=== PATIENT | male | born 1955 | race Caucasian/White ===

== ENCOUNTER 2017-01-20 10:55 | Emergency (ER) | payer SELFPAY ==
[2017-01-20 11:07] VITALS: BP 147/60
--- NOTE | 2017-01-20 11:10 | ER Document Report ---
ED Medical Screen (RME) - General Chief Complaint: Rectal Bleeding Stated Complaint: RECTAL BLEEDING Time Seen by Provider: 01/20/17 11:08 Mode of Arrival: Ambulatory Information source: Patient Notes: 61-year-old male presents to ED for rectal bleeding. He states a couple days ago he had a painful bowel movement then today 89 different times when he went to the bathroom he is noted bloodied on the paper and distal. He says it is a small amount of sometimes bright and sometimes dark red blood. Patient denies any history of hemorrhoids states she has never had a colonoscopy. He denies smoking drinking or drugs. He denies any past medical history except for essential tremors. Lungs are clear respirations eat regular and even. I have greeted and performed a rapid initial assessment of this patient. A comprehensive ED assessment and evaluation of the patient, analysis of test results and completion of medical decision making process will be conducted by an additional ED providers. TRAVEL OUTSIDE OF THE [place] IN LAST 30 DAYS: No - Related Data Allergies/Adverse Reactions: No Known Allergies Allergy (Unverified 01/20/17 11:04) Past Medical History Renal/ Medical History: Denies: Hx Peritoneal Dialysis Physical Exam - Vital signs Vitals: Temp Pulse Resp BP Pulse Ox 98.3 F 107 H 20 147/60 H 94 01/20/17 11:06 01/20/17 11:06 01/20/17 11:06 01/20/17 11:06 01/20/17 11:06 Course - Vital Signs Vital signs: Temp Pulse Resp BP Pulse Ox 98.3 F 107 H 20 147/60 H 94 01/20/17 11:06 01/20/17 11:06 01/20/17 11:06 01/20/17 11:06 01/20/17 11:06
[2017-01-20 11:44] LABS: APPEARANCE,URINE SLIGHTLY-CLOUDY; BILIRUBIN,URINE NEGATIVE (NEGATIVE); GLUCOSE, URINE NEGATIVE (NEGATIVE); KETONES,URINE NEGATIVE (NEGATIVE); LEUKOCYTE ESTERASE,URINE TRACE (NEGATIVE); NITRITE,URINE NEGATIVE (NEGATIVE); PROTEIN,URINE 30 mg/dL (NEGATIVE); URINE SPECIFIC GRAVITY 1.018; UROBILINOGEN,URINE NEGATIVE mg/dL (<2.0)
--- NOTE | 2017-01-20 11:51 | ER Document Report ---
ED General - General Chief Complaint: Rectal Bleeding Stated Complaint: RECTAL BLEEDING Time Seen by Provider: 01/20/17 11:08 Mode of Arrival: Ambulatory Information source: Patient Notes: 61-year-old male presents with complaints of rectal bleeding a few day duration. Patient notes that has been bright red with a few clots. He denies any abdominal pain, notes symptoms started over the past few days since he had large bowel movements. Admits to mild rectal pain denies a history of hemorrhoids patient has not had a colonoscopy TRAVEL OUTSIDE OF THE [place] IN LAST 30 DAYS: No - HPI Onset: Other - 3 Day duration Onset/Duration: Intermittent Quality of pain: Achy Severity: Mild Pain Level: 1 Associated symptoms: Other Exacerbated by: Denies Relieved by: Denies Similar symptoms previously: No Recently seen / treated by doctor: No - Related Data Allergies/Adverse Reactions: No Known Allergies Allergy (Unverified 01/20/17 11:04) Past Medical History - General Information source: Patient - Social History Smoking Status: Never Smoker Cigarette use (# per day): No Chew tobacco use (# tins/day): No Smoking Education Provided: No Family History: Reviewed & Not Pertinent Patient has suicidal ideation: No Patient has homicidal ideation: No Renal/ Medical History: Denies: Hx Peritoneal Dialysis Review of Systems - Review of Systems Notes: REVIEW OF SYSTEMS: CONSTITUTIONAL : Denies fever, chills, or sweats. Denies recent illness. EENT: Denies eye, ear, throat, or mouth pain or symptoms. Denies nasal or sinus congestion or discharge. Denies throat, tongue, or mouth swelling or difficulty swallowing. CARDIOVASCULAR: Denies chest pain. Denies palpitations or racing or irregular heart beat. Denies ankle edema. RESPIRATORY: Denies cough, cold, or chest congestion. Denies shortness of breath, difficulty breathing, or wheezing. GASTROINTESTINAL: Denies abdominal pain or distention. Denies nausea, vomiting , or diarrhea. Admits to rectal bleed GENITOURINARY: Denies difficulty urinating, painful urination, burning, frequency, blood in urine, or discharge. MUSCULOSKELETAL: Denies back or neck pain or stiffness. Denies joint pain or swelling. SKIN: Denies rash, lesions or sores. HEMATOLOGIC : Denies easy bruising or bleeding. LYMPHATIC: Denies swollen, enlarged glands. NEUROLOGICAL: Admits to essential tremors PSYCHIATRIC: Denies anxiety or stress. Denies depression, suicidal ideation, or homicidal ideation. ALL OTHER SYSTEMS REVIEWED AND NEGATIVE. Dictation was performed using [employer] voice recognition software PHYSICAL EXAMINATION: GENERAL: Well-appearing, well-nourished and in no acute distress. HEAD: Atraumatic, normocephalic. EYES: Pupils equal round and reactive to light, extraocular movements intact, sclera anicteric, conjunctiva are normal. ENT: Nares patent, oropharynx clear without exudates. Moist mucous membranes. NECK: Normal range of motion, supple without lymphadenopathy LUNGS: Breath sounds clear to auscultation bilaterally and equal. No wheezes rales or rhonchi. HEART: Regular rate and rhythm without murmurs ABDOMEN: Soft, nontender, nondistended abdomen. No guarding, no rebound. No masses appreciated. Rectal examination performed with nurse in room notes a thrombosed hemorrhoid with large clots Musculoskeletal: Normal range of motion, no pitting or edema. No cyanosis. NEUROLOGICAL: Cranial nerves grossly intact. Normal speech, normal gait. Normal sensory, motor exams PSYCH: Normal mood, normal affect. SKIN: Warm, Dry, normal turgor, no rashes or lesions noted. Physical Exam - Vital signs Vitals: Temp Pulse Resp BP Pulse Ox 98.3 F 107 H 20 147/60 H 94 01/20/17 11:06 01/20/17 11:06 01/20/17 11:06 01/20/17 11:06 01/20/17 11:06 Course - Re-evaluation Re-evalutation: 01/20/17 11:48 The large clots were removed, obvious hemorrhoid is noted on the right lateral aspect of the anus, patient otherwise is in no distress looks well has been given very strict return precautions regarding bleeding hemorrhoids After performing a Medical Screening Examination, I estimate there is LOW risk for ACUTE APPENDICITIS, BOWEL OBSTRUCTION, ACUTE CHOLECYSTITIS, PERFORATED DIVERTICULITIS, INCARCERATED HERNIA, PANCREATITIS, or PERFORATED ULCER, thus I consider the discharge disposition reasonable. Also, there is no evidence or peritonitis, sepsis, or toxicity. I have reevaluated this patient multiple times and no significant life threatening changes are noted. The patient and I have discussed the diagnosis and risks, and we agree with discharging home with close follow-up with the understanding that symptoms and presentations can change. We also discussed returning to the Emergency Department immediately if new or worsening symptoms occur. We have discussed the symptoms which are most concerning (e.g., bloody stool, fever, changing or worsening pain, intractable vomiting - standard verbal up date) that necessitate immediate return. - Vital Signs Vital signs: Temp Pulse Resp BP Pulse Ox 98.3 F 107 H 20 147/60 H 94 01/20/17 11:06 01/20/17 11:06 01/20/17 11:06 01/20/17 11:06 01/20/17 11:06 - Laboratory Laboratory results interpreted by me: 01/20/17 11:30 Urine Protein 30 H Urine Blood LARGE H Ur Leukocyte Esterase TRACE H Discharge - Discharge Clinical Impression: Thrombosed external hemorrhoid, Rectal bleeding Constipation Qualifiers: Constipation type: unspecified constipation type Qualified Code(s): K59.00 - Constipation, unspecified Condition: Stable Disposition: HOME, SELF-CARE Instructions: HC Hemorrhoid Cream ([facility]), Incision of Thrombosed Hemorrhoids ( [facility]), Hemorrhoids ([facility]) Prescriptions: Polyethylene Glycol 3350 [Miralax Powder 17 gm/Packet] 1 packet PO DAILY #7 pkg Referrals: NNAMDI FARLEY MD [ACTIVE STAFF] - Follow up tomorrow
== END 2017-01-20 11:55 | disposition home or self-care (01) ==
LOC: ER 10:55
DX: K62.5 Hemorrhage of anus and rectum (principal); K59.00 Constipation, unspecified; K62.89 Other specified diseases of anus and rectum; K64.5 Perianal venous thrombosis
CPT/HCPCS: 81001; 99283

== ENCOUNTER → 2017-07-12 | Outpatient (CLI) | payer MEDICARE ==
--- NOTE | 2017-07-12 12:24 | RADIOLOGY REPORT (SQ) ---
EXAM DESCRIPTION: CHEST PA/LATERAL COMPLETED DATE/TIME: 07/12/2017 12:17 pm REASON FOR STUDY: PRE OP COMPARISON: None. NUMBER OF VIEWS: Two view. TECHNIQUE: Frontal and lateral radiographic views of the chest acquired. LIMITATIONS: None. FINDINGS: LUNGS AND PLEURA: No opacities, masses or pneumothorax. No pleural effusion. MEDIASTINUM AND HILAR STRUCTURES: No masses or contour abnormalities. HEART AND VASCULATURE: Heart normal size. No evidence for failure. BONY STRUCTURES: No acute findings. HARDWARE: None. OTHER: No other significant finding. IMPRESSION: NO SIGNIFICANT RADIOGRAPHIC FINDING IN THE CHEST. TECHNICAL DOCUMENTATION: JOB ID: [id number] [employer]- All Rights Reserved
[2017-07-12 12:42] LABS: APPEARANCE,URINE CLEAR; BILIRUBIN,URINE NEGATIVE (NEGATIVE); COLOR,URINE YELLOW; GLUCOSE, URINE NEGATIVE (NEGATIVE); KETONES,URINE NEGATIVE (NEGATIVE); LEUKOCYTE ESTERASE,URINE NEGATIVE (NEGATIVE); NITRITE,URINE NEGATIVE (NEGATIVE); PROTEIN,URINE NEGATIVE (NEGATIVE); URINE SPECIFIC GRAVITY 1.013; UROBILINOGEN,URINE NEGATIVE mg/dL (<2.0)
[2017-07-12 12:48] LABS: ABSOLUTE EOSINOPHILS # (AUTO) 0.1 10^3/uL (0.0-0.6); ABSOLUTE LYMPHOCYTES (AUTO) 1.9 10^3/uL (0.5-4.7); ABSOLUTE MONOCYTES (AUTO) 0.7 10^3/uL (0.1-1.4); ABSOLUTE NEUT (AUTO) 5.3 10^3/uL (1.7-8.2); BASOPHILS % (AUTO) 0.3 % (0-2); EOSINOPHILS % (AUTO) 1.5 % (0-6); HEMOGLOBIN 15.6 g/dL (13.5-17.0); MEAN CORPUSCULAR HEMOGLOBIN 29.7 pg (27.0-33.4); MEAN CORPUSCULAR HGB CONC 33.8 g/dL (32.0-36.0); MEAN CORPUSCULAR VOLUME 88 fl (80-97); MONOCYTES % (AUTO) 8.3 % (3-13); PLATELET COUNT 215 10^3/uL (150-450); RED BLOOD COUNT 5.23 10^6/uL (4.35-5.55); RED CELL DISTRIBUTION WIDTH 13.4 % (11.5-14.0); SEGMENTED NEUTROPHILS % (AUTO) 65.9 % (42-78); TOTAL CELLS COUNTED % (AUTO) 100 %; WHITE BLOOD COUNT 8.1 10^3/uL (4.0-10.5)
[2017-07-12 13:07] LABS: ANION GAP 10 (5-19); BLOOD UREA NITROGEN 12 mg/dL (7-20); CALCIUM 10.1 mg/dL (8.4-10.2); CARBON DIOXIDE 31 mmol/L (22-30); CHLORIDE 103 mmol/L (98-107); GLUCOSE 80 mg/dL (75-110); POTASSIUM 4.8 mmol/L (3.6-5.0); SODIUM 143.7 mmol/L (137-145)
--- NOTE | 2017-07-13 10:26 | EKG REPORT ---
SEVERITY:- ABNORMAL ECG - PROBALE SINUS RHTHM, CANNOT ATRIAL FIBRILLATION, REC REPEAT EKG : Confirmed by: Harman Thacker 13-Jul-2017 10:25:37
== END ==
LOC: OD 11:24
PROVIDERS: ATTEND Orthopaedic Surgery
DX: Z01.810 Encounter for preprocedural cardiovascular examination (principal); Z01.812 Encounter for preprocedural laboratory examination; Z01.818 Encounter for other preprocedural examination
CPT/HCPCS: 36415; 71046; 80048; 81001; 85025; 93005; 93010

== ENCOUNTER 2017-08-08 05:30 | Inpatient (IN) | payer MEDICARE ==
[~2017-08-08 05:30] MED LIST: BUPIVACAINE INJ/PF LIPOSOME/PF 266 MG/20 ML SDV INJ PRN; BUPIVACAINE INJ/PF LIPOSOME/PF 266 MG/20 ML SDV ONE; CEFAZOLIN INJ 1 GM VIAL IV PRN; IBUPROFEN 800 MG in NORMAL SALINE 250 ML IV PRN; LACTATED RINGERS 1000 ML IV PRN; LANSOPRAZOLE 15 MG TAB.RAP.DR PO PRN; LIDOCAINE 0.5% INJ-PF (5 MG/ML) 50 ML SDV SUBCUT PRN; OXYCODONE HCL SR 10 MG TABLET PO PRN; THROMBIN (BOVINE) 5000 UNIT EPITAXIS KIT ONE; THROMBIN (BOVINE) TOPICAL 20000 UNIT VIAL ONE; VANCOMYCIN HCL 1,000 MG in DEXTROSE 5%-WATER 250 ML IV PRN
[2017-08-08] MEDS ORDERED: ONDANSETRON HCL INJ/PF 4 MG/2 ML SDV ONE (07:11)
[2017-08-08] MEDS ORDERED: FENTANYL CITRATE INJ/PF 100 MCG/2 ML AMPUL ONE (07:11)
[2017-08-08] MEDS ORDERED: PROPOFOL INJ 200 MG/20 ML VIAL IV ONE (07:11)
[2017-08-08] MEDS ORDERED: MIDAZOLAM 2 MG/2 ML INJ ONE (07:11)
[2017-08-08] MEDS ORDERED: TRANEXAMIC ACID INJ/PF 1,000 MG/10 ML SDV IV ONE ×2 (07:12→10:00)
[2017-08-08] MEDS ORDERED: ONDANSETRON HCL INJ/PF 4 MG/2 ML SDV IV PRN ×2 (07:40→08:41)
[2017-08-08] MEDS ORDERED: MORPHINE SULFATE 10 MG/ML INJ IV PRN ×4 (07:40→08:41)
[2017-08-08] MEDS ORDERED: FENTANYL CITRATE INJ/PF 100 MCG/2 ML AMPUL IV PRN ×3 (07:40)
[2017-08-08] MEDS ORDERED: DIPHENHYDRAMINE HCL 50 MG/ML VIAL IV PRN ×2 (07:40→08:41)
--- NOTE | 2017-08-08 08:27 | Operative Report ---
Operative Report DATE OF SURGERY: 08/08/17 PREOPERATIVE DIAGNOSIS: Right knee arthritis OPERATION: Right knee arthroplasty SURGEON: MARYANNE MCKEON 1ST BOBBIN MARKER: ARSENIO HIGGINS ANESTHESIA: Spinal TISSUE REMOVED OR ALTERED: Bone to pathology ESTIMATED BLOOD LOSS: 100 PROCEDURE: Implants used: Femur: [place] triathlon size 8 CR femur Tibia: 7 tibia Tibial liner: 11 mm CS insert Patella: 40 mm oval patella Procedure with the patient supine on the operating table the right the limb is prepped and draped in a sterile fashion. The limb was elevated for exsanguination and the tourniquet inflated to 280 torr. A standard midline median parapatellar approach the knee is taken. Access is gained to the femoral canal through the intercondylar notch. Intramedullary alignment instrumentation used to resect 10 mm of distal femur in 5 of valgus. Sizing guide indicated a size 8 femur. It is anticipated that there is going to be a slight notching of the anterior femoral cortex because this is the largest implant that is available. Next an appropriate cutting jig is then used to fashion anterior posterior and chamfer cuts. A trial reduction femurs performed and this is judged to be adequate. Attention was next turned to the tibia. Using an extra medullary alignment system 9 millimeters was resected off the lateral tibial plateau. This is sized to a size 7 tibia. A trial reduction was now performed with a 8 femur and a 7 tibia using a 11 millimeters spacer. It is full extension and central patellofemoral tracking. The articular surface the patella was next resected using an oscillating saw. All trial implants were removed. Polymethylmethacrylate is mixed and used to cement the above implants in place. On adequate curing the cement excess cement was removed the tourniquet was deflated hemostasis obtained the wound is then closed in layers using interrupted Vicryl followed by allyssa. A sterile compressive dressing was applied and the patient returned to recovery room in satisfactory condition.
[2017-08-08] MEDS ORDERED: MORPHINE SULFATE 10 MG/ML INJ IM PRN (08:41)
[2017-08-08] MEDS ORDERED: ZOLPIDEM TARTRATE 5 MG TABLET PO PRN (08:41)
[2017-08-08] MEDS ORDERED: OXYCODONE HCL IR 5 MG TABLET PO PRN (08:41)
[2017-08-08] MEDS ORDERED: ACETAMINOPHEN 325 MG TABLET PO PRN (08:41)
[2017-08-08] MEDS ORDERED: ONDANSETRON 4 MG TAB.RAPDIS PO PRN (08:41)
[2017-08-08] MEDS ORDERED: MAG HYDROX/AL HYDROX/SIMETH SUSP 30 ML UDCUP PO PRN (08:41)
--- NOTE | 2017-08-08 08:52 | Physician Advisory Note ---
Physician Advisor ProgressNote .: Pursuant to the plan for Tonia Aguilar, I have reviewed the medical record for this patient. Physician Advisor Statement: Please consider documenting, if you agree: 1. "Endstage OA by x-ray; x-ray findings include " (severe joint space narrowing? subchondral cysts? subchondral sclerosis? periarticular osteophytes? joint subluxzation? ...) 2. "ADLs interfered with by pain or disability due to OA include " (standing? walking? bathing? climbing stairs? squatting? cooking? difficulty getting up from seated position? disrupted sleep due to inability to lie on hip in bed?, ...) 3. Status necessity for Medicare: "I strongly expect this patient to require at least 2 midnights of inpatient hospital care because " - OR: start with patient in Outpt Obs status, changing to Inpatient status the next day if patient has medical issue requiring continued hospitalization. Status: Pt with OA, tremor, obesity with BMI between 30 & 40. This gives ASA classification II. No signficant co-morbidities. He has family, who may be available/able to assist post-op. Per CMS instruction, this sort of case should now start in Outpatient status. Thanks! CK
--- NOTE | 2017-08-08 09:26 | RADIOLOGY REPORT (SQ) ---
EXAM DESCRIPTION: KNEE RIGHT 2 VIEWS COMPLETED DATE/TIME: 08/08/2017 9:18 am REASON FOR STUDY: Post OP -Long Cassette in PACU M17.11 UNILATERAL PRIMARY OSTEOARTHRITIS, RIGHT KN EE COMPARISON: None. NUMBER OF VIEWS: Two view(s). TECHNIQUE: Digital radiographic images of the right knee post-procedure. LIMITATIONS: None. FINDINGS: BONES: No worrisome or unexpected findings post-procedure. DEVICE: Total knee arthroplasty SOFT TISSUES: No worrisome findings. Expected postoperative soft tissue changes. IMPRESSION: SATISFACTORY POSTOPERATIVE RIGHT KNEE. TECHNICAL DOCUMENTATION: JOB ID: [id number] [employer]- All Rights Reserved
[2017-08-08] MEDS ORDERED: INFLUENZA ADLT QUAD (36MOS+) 2017-18 VAC 0.5 ML SYR IM PRN (10:19)
[2017-08-08] MEDS: OXYCODONE HCL SR 10 MG TABLET PO SCH ×2 (11:13→21:25)
[2017-08-08] MEDS: PREGABALIN 75 MG CAPSULE PO SCH ×2 (11:13→18:14)
[2017-08-08] MEDS ORDERED: ACETAMINOPHEN 100 ML IV ONE (14:41)
[2017-08-08] MEDS: IBUPROFEN 800 MG in NORMAL SALINE 250 ML IV SCH ×2 (15:14→21:26)
[2017-08-08] MEDS ORDERED: VANCOMYCIN HCL 1,000 MG in DEXTROSE 5%-WATER 250 ML IV ONE (20:41)
[2017-08-09] MEDS: IBUPROFEN 800 MG in NORMAL SALINE 250 ML IV SCH ×3 (05:02→21:15)
[2017-08-09] MEDS: LANSOPRAZOLE 30 MG TAB.RAP.DR PO SCH (05:02)
[2017-08-09 05:42] LABS: HEMATOCRIT 37.9 % (37.9-51.0); HEMOGLOBIN 12.7 g/dL (13.5-17.0); MEAN CORPUSCULAR HEMOGLOBIN 29.9 pg (27.0-33.4); MEAN CORPUSCULAR HGB CONC 33.6 g/dL (32.0-36.0); MEAN CORPUSCULAR VOLUME 89 fl (80-97); PLATELET COUNT 178 10^3/uL (150-450); RED BLOOD COUNT 4.25 10^6/uL (4.35-5.55); RED CELL DISTRIBUTION WIDTH 12.9 % (11.5-14.0); WHITE BLOOD COUNT 9.9 10^3/uL (4.0-10.5)
[2017-08-09 06:07] LABS: ANION GAP 11 (5-19); BLOOD UREA NITROGEN 15 mg/dL (7-20); CALCIUM 9.3 mg/dL (8.4-10.2); CARBON DIOXIDE 28 mmol/L (22-30); CHLORIDE 99 mmol/L (98-107); GLUCOSE 131 mg/dL (75-110); POTASSIUM 4.5 mmol/L (3.6-5.0); SODIUM 137.6 mmol/L (137-145)
--- NOTE | 2017-08-09 06:38 | PDOC PROGRESS REPORT ---
Subjective Progress Note for:: 08/09/17 Subjective:: 62-year-old white male 1 day status post total left knee arthroplasty. Patient lying recumbent in hospital bed and notes that he was comfortable overnight and felt nauseous from pain medication. Patient was reassured that medications will be adjusted to decrease nausea. Reason For Visit: M17.11 UNILATERAL PRIMARY OSTEOARTHRITIS, RIGHT KN Physical Exam Vital Signs: Temp Pulse Resp BP Pulse Ox 36.6 C 75 18 133/76 H 90 L 08/08/17 23:22 08/08/17 23:22 08/08/17 23:22 08/08/17 23:22 08/08/17 23:22 Intake & Output 08/07/17 08/08/17 08/09/17 06:59 06:59 06:59 Intake Total 0 3950 Output Total 2650 Balance 0 1300 General appearance: PRESENT: no acute distress, well-developed, well-nourished Head exam: PRESENT: atraumatic, normocephalic Respiratory exam: PRESENT: unlabored Pulses: PRESENT: normal dorsalis pedis pul, +2 pedal pulses bilateral Vascular exam: PRESENT: normal capillary refill Additional comments: Patient lying recumbent in hospital bed with bilateral lower extremities in full extension. His postop compression dressing is in place and is clean dry and intact. This is left in place. He has minimal pedal edema and brisk capillary refill to toes on bilateral lower extremities. He has a pre-existing tremor of bilateral upper extremities which is apparent this morning. His legs are equal and his distal neurovascular exam is intact. Musculoskeletal exam: PRESENT: ambulatory Additional comments: Patient make slow progress with physical therapy ambulating 20 feet independently. At this point I believe he has not functionally capable to be discharged from the hospital. Therefore he will remain in the hospital for another midnight and continue to work with physical therapy to improve strength range of motion of left lower extremity. Neurological exam: PRESENT: alert, awake, oriented to person, oriented to place , oriented to time, oriented to situation, CN II-XII grossly intact. ABSENT: motor sensory deficit Psychiatric exam: PRESENT: appropriate affect, normal mood. ABSENT: homicidal ideation, suicidal ideation Skin exam: PRESENT: dry, intact, warm. ABSENT: cyanosis, rash Results Laboratory Results: 08/09/17 05:19 08/09/17 05:19 08/09/17 08/09/17 05:19 05:19 WBC 9.9 RBC 4.25 L Hgb 12.7 L Hct 37.9 MCV 89 MCH 29.9 MCHC 33.6 RDW 12.9 Plt Count 178 Sodium 137.6 Potassium 4.5 Chloride 99 Carbon Dioxide 28 Anion Gap 11 BUN 15 Creatinine 0.98 Est GFR ( Amer) > 60 Est GFR (Non-Af Amer) > 60 Glucose 131 H Calcium 9.3 Impressions: Knee X-Ray 08/08/17 08:42 IMPRESSION: SATISFACTORY POSTOPERATIVE RIGHT KNEE. Assessment & Plan - Diagnosis (1) Arthritis of left knee Is this a current diagnosis for this admission?: Yes (2) Acute blood loss anemia Is this a current diagnosis for this admission?: Yes Plan: Hemoglobin and hematocrit levels steadily rising from postop day 0. These should continue to rise and levels will normalize throughout his postop course. If they do not patient will likely benefit from transfusion of 1-2 units of packed red blood cells. - Plan Summary Plan Summary: 62-year-old white male 1 day status post total left knee arthroplasty. Patient make slow progress with physical therapy only ambulating 20 feet independently. Based on this assessment I do not believe he is functionally capable of being discharged from hospital. Therefore he will remain in the hospital for at least another midnight to continue to work with physical therapy to improve strength range of motion of left lower extremity. As the analgesic regimen was making patient nauseous his OxyContin will be discontinued. We will plan for discharge later this week.
[2017-08-09] MEDS: PREGABALIN 75 MG CAPSULE PO SCH ×2 (09:03→17:05)
[2017-08-09] MEDS: ASPIRIN 81 MG TABLET, ENT COATED PO SCH (09:03)
--- NOTE | 2017-08-09 09:57 | Physician Advisory Note ---
Physician Advisor ProgressNote .: Pursuant to the plan [facility], I have reviewed the medical record for this patient. Physician Advisor Statement: Please consider documenting, if you agree: 1. Details of pre-op x-rays & which ADLs interfered with by pain/disability from OA, as requested yesterday. 2. "Possible Anemia of Acute Blood Loss, due to " (Need to state likely cause.) VS. "Anemia of Acute Blood Loss, considered but ruled out" - Stating concern for possible Acute Blood Loss Anemia is helpful r.e. establishing medical necessity for continued hospitalization, & it can then be ruled in or out depending on pt's course. - If H/H is expected to normalize in a day or 2 without transfusion, then this is not likely anemia of acute blood loss, but may be hemodilution from operative IVF instead. Status: Medicare pt, has medical need for 2nd MN in hospital. Now appropriate for Inpatient status. Thanks! CK
[2017-08-10] MEDS: IBUPROFEN 800 MG in NORMAL SALINE 250 ML IV SCH (05:27)
[2017-08-10] MEDS: LANSOPRAZOLE 30 MG TAB.RAP.DR PO SCH (05:27)
[2017-08-10 06:34] LABS: HEMATOCRIT 35.8 % (37.9-51.0); HEMOGLOBIN 12.1 g/dL (13.5-17.0); MEAN CORPUSCULAR HEMOGLOBIN 29.8 pg (27.0-33.4); MEAN CORPUSCULAR HGB CONC 33.8 g/dL (32.0-36.0); MEAN CORPUSCULAR VOLUME 88 fl (80-97); PLATELET COUNT 171 10^3/uL (150-450); RED BLOOD COUNT 4.05 10^6/uL (4.35-5.55); RED CELL DISTRIBUTION WIDTH 13.2 % (11.5-14.0); WHITE BLOOD COUNT 9.9 10^3/uL (4.0-10.5)
--- NOTE | 2017-08-10 07:08 | PDOC DISCHARGE SUMMARY ---
General - Admit/Disc Date/PCP Admission Date/Primary Care Provider: 08/08/17 05:30 SYDNEY VALDEZ, Discharge Date: 08/10/17 - Discharge Diagnosis (1) Arthritis of left knee Is this a current diagnosis for this admission?: Yes (2) Acute blood loss anemia Is this a current diagnosis for this admission?: Yes - Additional Information Resuscitation Status: Full Code Discharge Activity: No Driving, No tub bath, Walk Frequently Home Medications: No Home Medications 08/08/17 History of Present Illness History of Present Illness: DAVIS SUTTON SR is a 62 year old male with progressive decrease in functional mobility due to arthritis of left knee admitted to the hospital to undergo elective total left knee arthroplasty. Hospital Course Hospital Course: 62-year-old white male with left knee arthritis admitted through the OR for elective total left knee arthroplasty. Patient undergoes an uncomplicated procedure and is returned to PACU in satisfactory condition. He is taking up to the surgical floor where he is seen by physical therapy to work towards independent ambulation and wear pain is managed by nursing staff and Dr. Borja and [place] MEDEROS. Patient makes great progress with physical therapy ambulating up to 100 feet independently. He will be discharged to home today with home health nursing, wheeled walker, bedside commode and home physical therapy. He will continue to work with home physical therapy to further distance of ambulation and improve strength range of motion of left lower extremity. Physical Exam Vital Signs: Temp Pulse Resp BP Pulse Ox 36.4 C 94 20 138/84 H 95 08/10/17 00:00 08/10/17 00:00 08/10/17 00:00 08/10/17 00:00 08/10/17 00:00 Intake & Output 08/09/17 08/10/17 08/11/17 06:59 06:59 06:59 Intake Total 4370 1515 Output Total 3100 800 Balance 1270 715 General appearance: PRESENT: no acute distress, well-developed, well-nourished Head exam: PRESENT: atraumatic, normocephalic Respiratory exam: PRESENT: unlabored Pulses: PRESENT: normal dorsalis pedis pul, +2 pedal pulses bilateral Additional comments: Patient reports polyuria throughout the night. Additional comments: Patient sitting upright with legs over the side of hospital bed. His compression dressing is clean dry and intact this is removed. His OpSite dressing underneath is clean dry and intact and this is left in place. There is minimal pedal edema and he has brisk capillary refill to toes on bilateral lower extremities. His leg lengths are equal and his distal neurovascular exam is intact. Patient's pre-existing bilateral upper extremity tremors are noted this morning. Musculoskeletal exam: PRESENT: ambulatory Additional comments: Patient makes great progress with physical therapy ambulating up to 100 feet independently. He will continue to work with home physical therapy once discharged to improve distance of ambulation and strength range of motion of left lower extremity. Neurological exam: PRESENT: alert, awake, oriented to person, oriented to place , oriented to time, oriented to situation, CN II-XII grossly intact. ABSENT: motor sensory deficit Psychiatric exam: PRESENT: appropriate affect, normal mood. ABSENT: homicidal ideation, suicidal ideation Skin exam: PRESENT: dry, intact, warm. ABSENT: cyanosis, rash Results Laboratory Results: 08/10/17 06:02 08/09/17 05:19 08/10/17 06:02 WBC 9.9 RBC 4.05 L Hgb 12.1 L Hct 35.8 L MCV 88 MCH 29.8 MCHC 33.8 RDW 13.2 Plt Count 171 Impressions: Knee X-Ray 08/08/17 08:42 IMPRESSION: SATISFACTORY POSTOPERATIVE RIGHT KNEE. Plan Discharge Plan: 62-year-old white male 2 days status post total left knee arthroplasty. Patient 's postoperative compression dressing is removed and the OpSite dressing under is clean dry and intact. This is left in place. He has made great progress with physical therapy ambulating 100 feet independently. He will continue to work with home physical therapy to improve strength range of motion of left lower extremity. He will be discharged home today with home health nursing, home [employer] therapy, wheeled walker, bedside commode. He will follow-up with [facility] for surgery 2 weeks postoperatively for reevaluation and staple removal. Before discharge a urinalysis will be ordered to assess for possible etiology of polyuria as urinary tract infection. Time Spent: Less than 30 Minutes
[2017-08-10 07:54] LABS: APPEARANCE,URINE CLEAR; BILIRUBIN,URINE NEGATIVE (NEGATIVE); COLOR,URINE YELLOW; GLUCOSE, URINE NEGATIVE (NEGATIVE); KETONES,URINE TRACE mg/dL (NEGATIVE); LEUKOCYTE ESTERASE,URINE NEGATIVE (NEGATIVE); NITRITE,URINE NEGATIVE (NEGATIVE); PROTEIN,URINE NEGATIVE (NEGATIVE); URINE SPECIFIC GRAVITY 1.009; UROBILINOGEN,URINE NEGATIVE mg/dL (<2.0)
[2017-08-10 08:35] VITALS: BP 138/84
[2017-08-10] MEDS: ASPIRIN 81 MG TABLET, ENT COATED PO SCH (09:16)
[2017-08-10] MEDS: PREGABALIN 75 MG CAPSULE PO SCH (09:17)
== END 2017-08-10 10:14 | disposition home health service (06) | DRG 470 ==
LOC: INOR 05:30 → EDSTATUS 07:30 → 4S 09:54
PROVIDERS: ADMIT Orthopaedic Surgery; ATTEND Orthopaedic Surgery
PROC: 0SRC0J9 Replacement of Right Knee Joint with Synthetic Substitute, Cemented, Open Approach (ICD-10-PCS; principal; 2017-08-08 07:30)
DX: M17.11 Unilateral primary osteoarthritis, right knee (principal); D62 Acute posthemorrhagic anemia; Z82.49 Family history of ischemic heart disease and other diseases of the circulatory system
CPT/HCPCS: 01402; 36415; 80048; 81001; 85027; 88305; 88311; 90686; 94799; C9290; G8978-GP; G8979-GP; G8987-GO; G8988-GO; J0131; J0690; J1741; J2250; J2270; J2405; J2704; J3010; J3370; J3490; J7050; J7060; S0119

== ENCOUNTER → 2018-01-16 | Outpatient (CLI) | payer MEDICARE ==
--- NOTE | 2018-01-16 08:52 | RADIOLOGY REPORT (SQ) ---
EXAM DESCRIPTION: CHEST PA/LATERAL COMPLETED DATE/TIME: 01/16/2018 8:42 am REASON FOR STUDY: PRE-OP COMPARISON: 07/12/2017 EXAM PARAMETERS: NUMBER OF VIEWS: two views TECHNIQUE: Digital Frontal and Lateral radiographic views of the chest acquired. RADIATION DOSE: NA LIMITATIONS: none FINDINGS: LUNGS AND PLEURA: No opacities, masses or pneumothorax. No pleural effusion. MEDIASTINUM AND HILAR STRUCTURES: No masses or contour abnormalities. HEART AND VASCULAR STRUCTURES: Heart normal size. No evidence for failure. BONES: No acute findings. HARDWARE: None in the chest. OTHER: No other significant finding. IMPRESSION: 1 No significant interval changes since the prior examination dated 07/12/2017. No acute findings. TECHNICAL DOCUMENTATION: JOB ID: [id number] [employer]- All Rights Reserved Reading location - IP/workstation name: [email or web address]
[2018-01-16 08:53] LABS: ABSOLUTE EOSINOPHILS # (AUTO) 0.1 10^3/uL (0.0-0.6); ABSOLUTE LYMPHOCYTES (AUTO) 1.9 10^3/uL (0.5-4.7); ABSOLUTE MONOCYTES (AUTO) 0.6 10^3/uL (0.1-1.4); ABSOLUTE NEUT (AUTO) 4.8 10^3/uL (1.7-8.2); BASOPHILS % (AUTO) 0.4 % (0-2); EOSINOPHILS % (AUTO) 0.9 % (0-6); HEMOGLOBIN 16.1 g/dL (13.5-17.0); LYMPHOCYTES % (AUTO) 25.5 % (13-45); MEAN CORPUSCULAR HEMOGLOBIN 30.1 pg (27.0-33.4); MEAN CORPUSCULAR VOLUME 86 fl (80-97); MONOCYTES % (AUTO) 7.9 % (3-13); PLATELET COUNT 237 10^3/uL (150-450); RED BLOOD COUNT 5.35 10^6/uL (4.35-5.55); RED CELL DISTRIBUTION WIDTH 13.6 % (11.5-14.0); SEGMENTED NEUTROPHILS % (AUTO) 65.3 % (42-78); TOTAL CELLS COUNTED % (AUTO) 100 %; WHITE BLOOD COUNT 7.4 10^3/uL (4.0-10.5)
[2018-01-16 08:54] LABS: APPEARANCE,URINE CLEAR; BILIRUBIN,URINE NEGATIVE (NEGATIVE); COLOR,URINE YELLOW; GLUCOSE, URINE NEGATIVE (NEGATIVE); KETONES,URINE NEGATIVE (NEGATIVE); LEUKOCYTE ESTERASE,URINE NEGATIVE (NEGATIVE); NITRITE,URINE NEGATIVE (NEGATIVE); PROTEIN,URINE NEGATIVE (NEGATIVE); URINE SPECIFIC GRAVITY 1.013; UROBILINOGEN,URINE NEGATIVE mg/dL (<2.0)
--- NOTE | 2018-01-16 09:13 | EKG REPORT ---
SEVERITY:- ABNORMAL ECG - SINUS RHYTHM WITH BASELINE ARTIFACT.PROBABLY NORMAL EKG : Confirmed by: Tressa Savage MD 16-Jan-2018 09:13:10
[2018-01-16 09:21] LABS: ANION GAP 12 (5-19); BLOOD UREA NITROGEN 10 mg/dL (7-20); CARBON DIOXIDE 30 mmol/L (22-30); CHLORIDE 104 mmol/L (98-107); GLUCOSE 103 mg/dL (75-110); POTASSIUM 4.9 mmol/L (3.6-5.0); SODIUM 146.1 mmol/L (137-145)
== END ==
LOC: OD 07:58
PROVIDERS: ATTEND Orthopaedic Surgery
DX: Z01.810 Encounter for preprocedural cardiovascular examination (principal); Z01.812 Encounter for preprocedural laboratory examination; Z01.818 Encounter for other preprocedural examination
CPT/HCPCS: 36415; 71046; 80048; 81001; 85025; 93005; 93010

== ENCOUNTER 2018-02-13 10:00 | Inpatient (IN) | payer MEDICARE ==
[2018-02-13] MEDS ORDERED: ONDANSETRON HCL INJ/PF 4 MG/2 ML SDV ONE (11:59)
[2018-02-13] MEDS ORDERED: MIDAZOLAM 2 MG/2 ML INJ ONE (11:59)
[2018-02-13] MEDS ORDERED: PROPOFOL INJ 200 MG/20 ML VIAL IV ONE (11:59)
[2018-02-13] MEDS ORDERED: FENTANYL CITRATE INJ/PF 100 MCG/2 ML AMPUL ONE ×2 (11:59→13:15)
[2018-02-13] MEDS ORDERED: TRANEXAMIC ACID INJ/PF 1,000 MG/10 ML SDV IV ONE ×3 (12:00→16:00)
[2018-02-13] MEDS ORDERED: BUPIVACAINE HCL/DEX-WATER/PF 15 MG/2 ML AMPULE ONE (12:00)
[2018-02-13] MEDS ORDERED: HYDROMORPHONE HCL INJ/PF 2 MG/ML AMPULE ONE (13:15)
[2018-02-13] MEDS ORDERED: DIPHENHYDRAMINE HCL 50 MG/ML VIAL IV PRN ×2 (13:42→14:01)
[2018-02-13] MEDS ORDERED: MEPERIDINE HCL/PF INJ 25 MG/1 ML DISP.SYRIN IV PRN (13:42)
[2018-02-13] MEDS ORDERED: FENTANYL CITRATE INJ/PF 100 MCG/2 ML AMPUL IV PRN ×3 (13:42)
[2018-02-13] MEDS ORDERED: OXYCODONE-ACETAMINOPHEN 5-325 MG TABLET PO PRN ×2 (13:42)
[2018-02-13] MEDS ORDERED: MORPHINE SULFATE 10 MG/ML INJ IV PRN ×3 (13:42→14:01)
[2018-02-13] MEDS ORDERED: PROMETHAZINE HCL INJ 25 MG/1 ML VIAL IV PRN ×2 (13:42)
[2018-02-13] MEDS ORDERED: ONDANSETRON 4 MG TAB.RAPDIS PO PRN (14:01)
[2018-02-13] MEDS ORDERED: ZOLPIDEM TARTRATE 5 MG TABLET PO PRN (14:01)
[2018-02-13] MEDS ORDERED: ACETAMINOPHEN 325 MG TABLET PO PRN (14:01)
[2018-02-13] MEDS ORDERED: RINGERS SOLUTION,LACTATED 1,000 ML IV PRN (14:01)
[2018-02-13] MEDS ORDERED: OXYCODONE HCL IR 5 MG TABLET PO PRN (14:01)
[2018-02-13] MEDS ORDERED: MAG HYDROX/AL HYDROX/SIMETH SUSP 30 ML UDCUP PO PRN (14:01)
[2018-02-13] MEDS ORDERED: MORPHINE SULFATE 10 MG/ML INJ IM PRN (14:01)
--- NOTE | 2018-02-13 14:01 | Operative Report ---
Operative Report DATE OF SURGERY: 02/13/18 PREOPERATIVE DIAGNOSIS: Left knee arthritis OPERATION: Left knee arthroplasty SURGEON: MARYANNE MCKEON ANESTHESIA: GA TISSUE REMOVED OR ALTERED: Bone to pathology ESTIMATED BLOOD LOSS: 150 PROCEDURE: Implants used: Femur: [place] triathlon size 8 CR femur Tibia: 8tibia Tibial liner: 9 mm CS insert Patella: 40 mm oval patella Procedure with the patient supine on the operating table the left the limb is prepped and draped in a sterile fashion. The limb was elevated for exsanguination and the tourniquet inflated to 280 torr. A standard midline median parapatellar approach the knee is taken. At this point it is clear that the spinal anesthetic was not satisfactory and the case is interrupted while anesthesia intubates the patient. During the course of the intubation the patient's blood pressure exceeds that of the tourniquet and there is considerable bleeding. Tourniquet is deflated. Once anesthesia stabilizes the blood pressure, the limb is again elevated for exsanguination tourniquet reinflated to 280 torr. Access is gained to the femoral canal through the intercondylar notch. Intramedullary alignment instrumentation used to resect 10 mm of distal femur in 5 of valgus. Sizing guide indicated a size 8 femur. Appropriate cutting jig is then used to fashion anterior posterior and chamfer cuts. A trial reduction femurs performed and this is judged to be adequate. Attention was next turned to the tibia. Using an extra medullary alignment system 9 millimeters was resected off the lateral tibial plateau. This is sized to a size 8 tibia. A trial reduction was now performed with a 8 femur and a 8 tibia using a 9 millimeters spacer. It is full extension and central patellofemoral tracking. The articular surface the patella was next resected using an oscillating saw. All trial implants were removed. Polymethylmethacrylate is mixed and used to cement the above implants in place. On adequate curing the cement excess cement was removed the tourniquet was deflated hemostasis obtained the wound is then closed in layers using interrupted Vicryl followed by allyssa. A sterile compressive dressing was applied and the patient returned to recovery room in satisfactory condition.
--- NOTE | 2018-02-13 15:45 | RADIOLOGY REPORT (SQ) ---
EXAM DESCRIPTION: KNEE LEFT 2 VIEWS COMPLETED DATE/TIME: 02/13/2018 3:12 pm REASON FOR STUDY: Post OP -Long Cassette in PACU M17.12 UNILATERAL PRIMARY OSTEOARTHRITIS, LEFT KNE E COMPARISON: None. NUMBER OF VIEWS: Two view(s). TECHNIQUE: Digital radiographic images of the left knee post-procedure. LIMITATIONS: None. FINDINGS: BONES: No worrisome or unexpected findings post-procedure. DEVICE: Total left knee arthroplasty. Position and alignment are anatomic. SOFT TISSUES: No worrisome findings. Expected postoperative soft tissue changes. IMPRESSION: SATISFACTORY POSTOPERATIVE LEFT KNEE. TECHNICAL DOCUMENTATION: JOB ID: [id number] [employer]- All Rights Reserved Reading location - IP/workstation name: [email or web address]
[2018-02-13] MEDS: ONDANSETRON HCL INJ/PF 4 MG/2 ML SDV IV PRN (17:37)
[2018-02-13] MEDS: SENNOSIDES/DOCUSATE 8.6-50 MG 1 EACH TABLET PO SCH (17:41)
[2018-02-13] MEDS: IBUPROFEN 800 MG in NORMAL SALINE 250 ML IV SCH (17:52)
[2018-02-13] MEDS ORDERED: DEXAMETHASONE SOD PHOSPHATE INJ 4 MG/1 ML VIAL ONE (20:06)
[2018-02-13] MEDS ORDERED: SUCCINYLCHOLINE CHLORIDE INJ 200 MG/10 ML VIAL ONE (20:06)
[2018-02-13] MEDS: OXYCODONE HCL SR 10 MG TABLET PO SCH (21:51)
[2018-02-14] MEDS ORDERED: LABETALOL HCL INJ 20 MG/4 ML DISP.SYRIN IV PRN (00:13)
[2018-02-14] MEDS ORDERED: LABETALOL HCL INJ 200 MG/40 ML VIAL IV ONE (00:44)
[2018-02-14] MEDS: ONDANSETRON HCL INJ/PF 4 MG/2 ML SDV IV PRN ×3 (00:46→15:46)
[2018-02-14] MEDS: MORPHINE SULFATE 10 MG/ML INJ IV PRN ×3 (00:46→20:31)
[2018-02-14] MEDS: IBUPROFEN 800 MG in NORMAL SALINE 250 ML IV SCH (01:24)
[2018-02-14] MEDS ORDERED: VANCOMYCIN HCL 1,000 MG in DEXTROSE 5%-WATER 250 ML IV ONE (02:03)
[2018-02-14] MEDS: LANSOPRAZOLE 30 MG TAB.RAP.DR PO SCH (05:08)
--- NOTE | 2018-02-14 06:53 | PDOC PROGRESS REPORT ---
Subjective Progress Note for:: 02/14/18 Reason For Visit: M17.12 UNILATERAL PRIMARY OSTEOARTHRITIS, LEFT KNE 62-year-old white male postop day 1 from left knee arthroplasty. Patient has not been seen by physical therapy and has not been out of bed postoperatively. Physical Exam Vital Signs: Temp Pulse Resp BP Pulse Ox 36.4 C 84 18 134/78 H 95 02/13/18 20:31 02/14/18 03:00 02/13/18 20:31 02/14/18 03:00 02/13/18 20:31 Intake & Output 02/12/18 02/13/18 02/14/18 06:59 06:59 06:59 Intake Total 3850 Output Total 2275 Balance 1575 General appearance: PRESENT: no acute distress, mild distress Head exam: PRESENT: normocephalic Respiratory exam: PRESENT: unlabored Cardiovascular exam: PRESENT: RRR Pulses: PRESENT: +1 pedal pulses bilateral Vascular exam: PRESENT: normal capillary refill GI/Abdominal exam: PRESENT: soft Rectal exam: PRESENT: deferred Extremities exam: PRESENT: other - Left lower extremity dressing clean dry and intact. Distal neurovascular examination is intact. Neurological exam: PRESENT: alert, awake, oriented to person, oriented to place , oriented to time, oriented to situation. ABSENT: motor sensory deficit Psychiatric exam: PRESENT: appropriate affect, normal mood. ABSENT: homicidal ideation, suicidal ideation Skin exam: PRESENT: dry, intact, warm. ABSENT: cyanosis, rash Results Impressions: Knee X-Ray 02/13/18 14:04 IMPRESSION: SATISFACTORY POSTOPERATIVE LEFT KNEE. Status: Imported from PACS Assessment & Plan - Diagnosis (1) Arthritis of left knee Is this a current diagnosis for this admission?: Yes Plan: 62-year-old white male status post left knee arthroplasty postop day 1. Patient with significant tremor disorder. He has not been out of bed at this point. He will be seen by physical therapy today for weightbearing as tolerated ambulation. At this point is not suitable for consideration of discharge home because of his limited functional status. - Time Time Spent with patient: 15-24 minutes Anticipated discharge: Home with Homehealth Within: within 24 hours
[2018-02-14 07:14] LABS: HEMATOCRIT 37.4 % (37.9-51.0); HEMOGLOBIN 12.5 g/dL (13.5-17.0); MEAN CORPUSCULAR HEMOGLOBIN 29.6 pg (27.0-33.4); MEAN CORPUSCULAR HGB CONC 33.5 g/dL (32.0-36.0); MEAN CORPUSCULAR VOLUME 88 fl (80-97); PLATELET COUNT 194 10^3/uL (150-450); RED BLOOD COUNT 4.24 10^6/uL (4.35-5.55); RED CELL DISTRIBUTION WIDTH 13.9 % (11.5-14.0); WHITE BLOOD COUNT 14.2 10^3/uL (4.0-10.5)
[2018-02-14 07:38] LABS: ANION GAP 13 (5-19); BLOOD UREA NITROGEN 18 mg/dL (7-20); CALCIUM 8.6 mg/dL (8.4-10.2); CARBON DIOXIDE 24 mmol/L (22-30); CHLORIDE 102 mmol/L (98-107); GLUCOSE 128 mg/dL (75-110); POTASSIUM 4.7 mmol/L (3.6-5.0); SODIUM 139.1 mmol/L (137-145)
[2018-02-14] MEDS: PRENATAL VITAMIN W DHA CAPSULE PO SCH (09:05)
[2018-02-14] MEDS: ASPIRIN 81 MG TABLET, ENT COATED PO SCH (09:05)
[2018-02-14] MEDS: SENNOSIDES/DOCUSATE 8.6-50 MG 1 EACH TABLET PO SCH ×2 (09:08→17:00)
[2018-02-14] MEDS: IBUPROFEN 800 MG in DEXTROSE 5%-WATER 250 ML IV SCH ×2 (10:11→17:00)
[2018-02-14] MEDS: OXYCODONE HCL SR 10 MG TABLET PO SCH ×2 (11:10→21:31)
--- NOTE | 2018-02-14 14:36 | Physician Advisory Note ---
Physician Advisor ProgressNote .: Pursuant to the plan for [facility], I have reviewed the medical record for this patient. Physician Advisor Statement: Perfect documentation of reasons he needs continued hospital stay/Inpt. CK
[2018-02-15] MEDS: MORPHINE SULFATE 10 MG/ML INJ IV PRN (01:10)
[2018-02-15] MEDS: IBUPROFEN 800 MG in DEXTROSE 5%-WATER 250 ML IV SCH ×2 (01:10→10:05)
[2018-02-15 05:38] LABS: HEMATOCRIT 34.9 % (37.9-51.0); MEAN CORPUSCULAR HEMOGLOBIN 30.2 pg (27.0-33.4); MEAN CORPUSCULAR HGB CONC 34.4 g/dL (32.0-36.0); MEAN CORPUSCULAR VOLUME 88 fl (80-97); PLATELET COUNT 172 10^3/uL (150-450); RED BLOOD COUNT 3.98 10^6/uL (4.35-5.55); RED CELL DISTRIBUTION WIDTH 13.7 % (11.5-14.0); WHITE BLOOD COUNT 13.4 10^3/uL (4.0-10.5)
[2018-02-15] MEDS: LANSOPRAZOLE 30 MG TAB.RAP.DR PO SCH (06:36)
--- NOTE | 2018-02-15 07:35 | PDOC DISCHARGE SUMMARY ---
General - Admit/Disc Date/PCP Admission Date/Primary Care Provider: 02/13/18 10:09 SYDNEY VALDEZ, Discharge Date: 02/15/18 - Discharge Diagnosis (1) Arthritis of left knee Is this a current diagnosis for this admission?: Yes - Additional Information Resuscitation Status: Full Code Discharge Diet: As Tolerated, Regular Discharge Activity: Balance Activity w/Rest, No Driving, No tub bath Home Medications: Tamsulosin HCl [Flomax] 0.4 mg PO DAILY 02/06/18 Aspirin [Ecotrin 81 mg EC Tablet] 81 mg PO DAILY tabec 02/15/18 Oxycodone HCl [Oxy-Ir 5 mg Tablet] 5 mg PO Q6HP PRN tablet 02/15/18 History of Present Illness History of Present Illness: DAVIS SUTTON SR is a 62 year old male Patient is a 62-year-old white male with progressive left knee pain and functional disability secondary osteoarthritis. Patient is admitted for elective left knee arthroplasty. Hospital Course Hospital Course: Patient is admitted through the operating room where he undergoes uncomplicated left knee arthroplasty. He is returned to floor in satisfactory condition. Because of the time of the day as well as a prolonged acting spinal patient receives limited physical therapy on the day of surgery. He makes excellent progress with physical therapy on postop day 1. Dressing is changed on postop day 2. Wound is well approximated with allyssa. There is no drainage or erythema. There is minimal pedal edema. Physical Exam Vital Signs: Temp Pulse Resp BP Pulse Ox 37.1 C 102 H 18 178/91 H 93 02/15/18 02:00 02/15/18 02:00 02/15/18 02:00 02/15/18 02:00 02/15/18 02:00 Intake & Output 02/14/18 02/15/18 02/16/18 06:59 06:59 06:59 Intake Total 3850 3838 Output Total 2275 1450 Balance 1575 2388 Weight 115 kg General appearance: PRESENT: no acute distress, other - Tremor Head exam: PRESENT: normocephalic Respiratory exam: PRESENT: unlabored Cardiovascular exam: PRESENT: RRR Pulses: PRESENT: +1 pedal pulses bilateral Vascular exam: PRESENT: normal capillary refill GI/Abdominal exam: PRESENT: soft Rectal exam: PRESENT: deferred Extremities exam: PRESENT: other - Left knee dressing is changed on postop day 2. Wound is well approximated by allyssa. The wound is dry without drainage. There is no erythema. There is minimal pedal edema. Distal neurovascular examination is intact. Neurological exam: PRESENT: alert, awake, oriented to person, oriented to place , oriented to time, oriented to situation. ABSENT: motor sensory deficit Psychiatric exam: PRESENT: appropriate affect, normal mood. ABSENT: homicidal ideation, suicidal ideation Skin exam: PRESENT: dry, intact, warm. ABSENT: cyanosis, rash Results Laboratory Results: 02/15/18 05:02 02/14/18 06:50 02/14/18 02/15/18 06:50 05:02 WBC 13.4 H RBC 3.98 L Hgb 12.0 L Hct 34.9 L MCV 88 MCH 30.2 MCHC 34.4 RDW 13.7 Plt Count 172 Sodium 139.1 Potassium 4.7 Chloride 102 Carbon Dioxide 24 Anion Gap 13 BUN 18 Creatinine 1.00 Est GFR ( Amer) > 60 Est GFR (Non-Af Amer) > 60 Glucose 128 H Calcium 8.6 Impressions: Knee X-Ray 02/13/18 14:04 IMPRESSION: SATISFACTORY POSTOPERATIVE LEFT KNEE. Status: Imported from PACS Qualifiers - * PATIENT BEING DISCHARGED WITH ANY OF THE FOLLOWING DIAGNOSIS: No VTE patient discharged on overlapping Therapy?: Yes Plan Discharge Plan: Patient to be discharged home with home health services and DME. Follow-up with Dr. Jonh Swenson Haugan for surgery in 2 weeks for staple removal. Time Spent: Less than 30 Minutes
[2018-02-15] MEDS: SENNOSIDES/DOCUSATE 8.6-50 MG 1 EACH TABLET PO SCH ×2 (10:02→17:25)
[2018-02-15] MEDS: PRENATAL VITAMIN W DHA CAPSULE PO SCH (10:05)
[2018-02-15] MEDS: ASPIRIN 81 MG TABLET, ENT COATED PO SCH (10:05)
[2018-02-15] MEDS: OXYCODONE HCL SR 10 MG TABLET PO SCH (13:56)
[2018-02-15] MEDS ORDERED: LISINOPRIL 10 MG TABLET PO ONE ×2 (14:00→15:50)
[2018-02-15] MEDS ORDERED: METOPROLOL SUCCINATE 25 MG TAB.SR.24H PO ONE ×2 (14:00→15:51)
--- NOTE | 2018-02-15 16:52 | PDOC CONSULTATION ---
Consultation Consult Date: 02/15/18 Attending physician:: MARYANNE MCKEON Consult reason:: HTN History of Present Illness Admission Date/PCP: 02/13/18 10:09 SYDNEY VALDEZ DO History of Present Illness: DAVIS SUTTON SR is a 62 year old male with progressive left knee pain and functional disability secondary osteoarthritis. Patient is admitted for elective left knee arthroplasty. Hospitalist consulted because patient has been experiencing HTN (SBP ~ 190s) while at [facility]. The patient denies a history of HTN but endorses a strong family history of heart disease. Upon evaluation, patient denies chest pain, shortness of breath, headache, dizziness, blurry vision peripheral edema. The patient states that his blood pressure is usually WNL when he is at his primary care doctor's office. Additionally, the patient states that his room at [facility] is "the hardest room in the hospital." He is sitting in bed in his shorts with no shirt , mild diaphoresis noted to his forehead and posterior neck. Lung sounds clear to auscultation. S1-S2. Palpable pulses in upper and lower extremities. No evidence of peripheral edema. Past Medical History Neurological History Note: TREMOR Renal/ Medical History: Reports: Other - BPH Musculoskeltal Medical History: Reports: Arthritis - knee Denies: Fibromyalgia Past Surgical History Past Surgical History: Reports: Orthopedic Surgery - Elbow Denies: Appendectomy, Cholecystectomy, Coronary Artery Bypass Graft, Gastric Bypass Surgery, Herniorrhaphy, Pacemaker, Tonsillectomy Social History Information Source: Patient Smoking Status: Never Smoker Hx Recreational Drug Use: No Hx Prescription Drug Abuse: No - Advance Directive Resuscitation Status: Full Code Family History Family History: CAD, Hypertension Parental Family History Reviewed: Yes - MOTHER - [place] @ 56 Y.O. Children Family History Reviewed: NA Sibling(s) Family History Reviewed.: Yes Medication/Allergy Home Medications: Tamsulosin HCl [Flomax] 0.4 mg PO DAILY 02/06/18 Aspirin [Ecotrin 81 mg EC Tablet] 81 mg PO DAILY tabec 02/15/18 Oxycodone HCl [Oxy-Ir 5 mg Tablet] 5 mg PO Q6HP PRN tablet 02/15/18 Allergies/Adverse Reactions: No Known Allergies Allergy (Verified 01/18/18 10:51) Review of Systems All systems: reviewed and no additional remarkable complaints except as stated Physical Exam Vital Signs: Temp Pulse Resp BP Pulse Ox 98.3 F 95 16 153/85 H 91 L 02/15/18 08:03 02/15/18 08:03 02/15/18 08:03 02/15/18 08:03 02/15/18 08:03 Intake & Output 02/14/18 02/15/18 02/16/18 06:59 06:59 06:59 Intake Total 3850 3838 250 Output Total 2275 1450 Balance 1575 2388 250 Weight 115 kg Results Laboratory Results: 02/15/18 05:02 02/14/18 06:50 02/15/18 05:02 WBC 13.4 H RBC 3.98 L Hgb 12.0 L Hct 34.9 L MCV 88 MCH 30.2 MCHC 34.4 RDW 13.7 Plt Count 172 Impressions: Knee X-Ray 02/13/18 14:04 IMPRESSION: SATISFACTORY POSTOPERATIVE LEFT KNEE. Assessment & Plan - Diagnosis (1) Arthritis of left knee Is this a current diagnosis for this admission?: Yes Plan: Management per Ortho (2) Hypertension Qualifiers: Hypertension type: essential hypertension Qualified Code(s): I10 - Essential (primary) hypertension Is this a current diagnosis for this admission?: Yes Plan: Patient denies history of HTN Family history of heart disease Initiate PO lisinopril and metoprolol PRN hydralazine for SBP > 170 - Time Time Spent: 30 to 50 Minutes Medications reviewed and adjusted accordingly: Yes Anticipated discharge: Home - Inpatient Certification Based on my medical assessment, after consideration of the patient's comorbidities, presenting symptoms, or acuity I expect that the services needed warrant INPATIENT care.: Yes I certify that my determination is in accordance with my understanding of Medicare's requirements for reasonable and necessary INPATIENT services [42 CFR 412.3e].: Yes Medical Necessity: Risk of Complication if Not Cared For in Hospital - Plan Summary Plan Summary: INITIATE PO ANTI-HTN MEDICATIONS. MONITOR BP CLOSELY.
[2018-02-15 18:46] VITALS: BP 146/82
[2018-02-16] MEDS ORDERED: METOPROLOL SUCCINATE 25 MG TAB.SR.24H PO SCH (10:00)
[2018-02-16] MEDS ORDERED: LISINOPRIL 10 MG TABLET PO SCH (10:00)
== END 2018-02-15 19:30 | disposition home health service (06) | DRG 470 ==
LOC: INOR 10:09 → 4S 15:27
PROVIDERS: ADMIT Orthopaedic Surgery; ATTEND Orthopaedic Surgery
PROC: 0SRD0J9 Replacement of Left Knee Joint with Synthetic Substitute, Cemented, Open Approach (ICD-10-PCS; principal; 2018-02-13 12:30)
DX: M17.12 Unilateral primary osteoarthritis, left knee (principal); Z96.651 Presence of right artificial knee joint; Z82.49 Family history of ischemic heart disease and other diseases of the circulatory system; I10 Essential (primary) hypertension
CPT/HCPCS: 01402; 36415; 80048; 85027; 88305; 88311; 94799; C1713; C1776; C9290; G8978-GP; G8979-GP; G8987-GO; G8988-GO; J0330; J0690; J1100; J1170; J1741; J2250; J2270; J2405; J2704; J3010; J3370; J3490; J7050; J7060